=== PATIENT | female | born 1970 | race Caucasian/White ===

== ENCOUNTER 2020-11-11 08:03 | Emergency (ER) | payer BC ==
[~2020-11-11] VITALS: Ht 182.9 cm; Wt 77.1 kg
[~2020-11-11 08:03] MED LIST: ABILIFY 5 MG TAB5 MG; CARVEDILOL3.125 MG PO; CLONAZEPAM 0.50.5 M1 PO; CYMBALTA60 MG PO; FLEXERIL PO; GLUCOPHAGE1000 MG; KETOROLAC TROME10 MG PO; LATUDA20 MG PO; METFORMIN HCL1000 M1 PO; METFORMIN HCL500 MG PO; NORCO 5-325 TA1 EACH PO; ONGLYZA5 MG PO; PHENERGAN 25 MG25 M1 PO; TORADOL 10 MG T10 MG PO; TRAMADOL 50 MG50 MG PO; ULTRAM 50MG TAB50 MG PO; VICTOZA0.6 MG/0.1 SUBQ
[2020-11-11] MEDS ORDERED: ALTACE5 MG PO (08:13)
[2020-11-11] MEDS ORDERED: TOPROL XL25 MG PO (08:14)
[2020-11-11] MEDS ORDERED: REMERON15 M2 PO (08:14)
[2020-11-11] MEDS ORDERED: BRINTELLIX10 MG PO (08:14)
[2020-11-11 08:24] LABS: ABSOLUTE EOSINOPHILS 0.2 thou/uL (0.0-0.7); ABSOLUTE LYMPHOCYTES 1.6 thou/uL (0.8-5.3); ABSOLUTE MONOCYTES 0.6 thou/uL (0.0-1.2); ABSOLUTE NEUTROPHILS 4.4 thou/uL (1.6-8.1); BASOPHILS 0.6 %; EOSINOPHILS 2.5 %; HEMATOCRIT 38.2 % (37.0-47.0); HEMOGLOBIN 12.5 gm/dL (12.0-15.0); LYMPHOCYTES 23.2 %; MCH 29.8 pg (26.0-34.0); MCHC 32.7 g/dL (28.0-37.0); MCV 91.2 fL (80.0-100.0); MPV 7.6 fl. (7.2-11.1); NUCLEATED RBCS 0 /100WBC; PLATELET COUNT* 394 thou/uL (150-400); POLYS 64.7 %; RBC 4.19 mil/uL (4.20-5.00); RDW-CV 12.7 % (10.5-14.5); WBC 6.9 thou/uL (4.0-11.0)
[2020-11-11 08:37] LABS: APTT 23.8 Seconds (25.0-31.3); INR 0.9
[2020-11-11 08:40] LABS: CALCIUM 8.7 mg/dL (8.5-10.1); CREATININE 1.4 mg/dL (0.6-1.3); POTASSIUM 4.3 mmol/L (3.5-5.1)
[2020-11-11 08:47] LABS: ALBUMIN 3.9 g/dL (3.4-5.0); CK-MB MASS 1.6 ng/mL (<0.5-3.6); MAGNESIUM 1.5 mg/dL (1.8-2.4); TOTAL BILIRUBIN 0.1 mg/dL (<0.1-1.0); TOTAL PROTEIN 7.4 g/dL (6.4-8.2)
[2020-11-11 11:14] VITALS: BP 109/69
--- NOTE | 2020-11-12 11:09 | EKG ---
[place] [address] ELECTROCARDIOGRAM REPORT Name: MICAELA SYED Room: [facility]#: [id number] Admission: 11/11/20 Attend Phys: Discharge: 11/11/20 Date of : 72 Date of Service: 11/11/2008 Report #: [id number] THIS REPORT FOR: //name// [facility] ED Test Date: 2020-11-11 Test Time: 08:08:42 Pat Name: MICAELA CARVALHO Department: Room: Gender: F [employer]: HILARY : 1970 Requested By: Al Urrutia Order Number: [id number] MD: Maury Sheridan Measurements Intervals [place] Rate: 79 P: 72 GA: 147 QRS: 73 QRSD: 84 T: 61 QT: 360 QTc: 413 Interpretive Statements Sinus rhythm Compared to ECG 07/31/2014 08:24:55 T-wave abnormality no longer present Electronically Signed On 11-12-2020 11:09:00 [employer] INSPECT[employer] by Maury Sheridan [email or web address] <ELECTRONICALLY SIGNED> By: Maury Sheridan MD, [facility] 11/12/20 [id number] Maury Sheridan MD, [facility] /EPI
== END 2020-11-11 11:14 | disposition home or self-care (01) ==
LOC: M.ERS 08:03
PROVIDERS: Family Medicine
DX: R07.89 Other chest pain (principal); G43.909 Migraine, unspecified, not intractable, without status migrainosus; E11.9 Type 2 diabetes mellitus without complications; Z90.710 Acquired absence of both cervix and uterus

== ENCOUNTER 2021-10-12 14:02 | Emergency (ER) | payer BC, OTHER ==
[~2021-10-12] VITALS: Ht 182.9 cm; Wt 63.5 kg
[~2021-10-12 14:02] MED LIST changes: +ALTACE5 MG PO; +BRINTELLIX10 MG PO; +REMERON15 M2 PO; +TOPROL XL25 MG PO
[2021-10-12] MEDS ORDERED: LIPITOR 20 MG T20 M1 PO (14:09)
[2021-10-12] MEDS ORDERED: LOPRESSOR50 MG PO (14:09)
[2021-10-12] MEDS ORDERED: FLEXERIL PO (15:24)
[2021-10-12 15:32] VITALS: BP 121/70
== END 2021-10-12 15:33 | disposition home or self-care (01) ==
LOC: M.ERS 14:02
DX: S16.1XXA Strain of muscle, fascia and tendon at neck level, initial encounter (principal); R20.0 Anesthesia of skin; G43.909 Migraine, unspecified, not intractable, without status migrainosus; E11.9 Type 2 diabetes mellitus without complications; F32.9 Major depressive disorder, single episode, unspecified; F41.9 Anxiety disorder, unspecified; Z90.710 Acquired absence of both cervix and uterus; Z79.899 Other long term (current) drug therapy; V47.5XXA Car driver injured in collision with fixed or stationary object in traffic accident, initial encounter; Y93.I9 Activity, other involving external motion; Y92.488 Other paved roadways as the place of occurrence of the external cause; Y99.8 Other external cause status